=== PATIENT | male | born 1950 | race Caucasian/White ===

== ENCOUNTER → 2018-06-05 | Outpatient (REF) | payer MEDICARE, OTHER ==
[2018-06-06 14:12] LABS: PSA TOTAL 2.4 ng/mL (0.0-4.0)
== END ==
LOC: M LAB REF 12:00
PROVIDERS: ATTEND Internal Medicine
DX: R97.20 Elevated prostate specific antigen [PSA] (principal)

== ENCOUNTER → 2019-04-05 | Outpatient (REF) | payer MEDICARE, OTHER | LOC: M LAB REF 12:11 | PROVIDERS: ATTEND Physician Assistant | DX: J02.9 Acute pharyngitis, unspecified (principal) ==

== ENCOUNTER → 2020-05-14 | Outpatient (CLI) | payer MEDICARE, OTHER ==
--- NOTE | 2020-05-14 09:54 | REP ---
INDICATION: PAIN COMPARISON: None. TECHNIQUE: AP, lateral, bilateral oblique views right foot. FINDINGS: Generalized age-related degenerative changes are appreciated most pronounced at the 1st metatarsophalangeal joint which includes joint space narrowing, subchondral sclerosis, marginal spurring and minimal chondrocalcinosis. No acute fracture or dislocation appreciated. IMPRESSION: Degenerative changes primarily involving the 1st MTP joint.. No acute fracture or dislocation. <Electronically signed by Edgardo Holden > 05/14/20 0933
--- NOTE | 2020-05-14 09:55 | REP ---
INDICATION: PAIN COMPARISON: None. TECHNIQUE: AP, lateral, bilateral oblique views. FINDINGS: Generalized age-related changes are appreciated. No acute fracture or dislocation. Ankle mortise intact. No subcutaneous emphysema or foreign body. IMPRESSION: Normal age-appropriate right ankle radiograph series. <Electronically signed by Edgardo Holden > 05/14/20 0929
== END ==
LOC: M WUC 09:09
PROVIDERS: ATTEND Physician Assistant Medical
DX: M19.071 Primary osteoarthritis, right ankle and foot (principal)

== ENCOUNTER → 2021-07-02 | Outpatient (REF) | payer MEDICARE, OTHER | LOC: M LAB REF 16:29 | PROVIDERS: ATTEND Physician Assistant Medical | DX: R10.84 Generalized abdominal pain (principal) ==

== ENCOUNTER → 2022-04-03 | Outpatient (CLI) | payer MEDICARE, OTHER ==
[~2022-04-03] MED LIST: CLAR10CA3 PO; FAMO1TAB11 PO; FLUTISP NARES; MELO15TA28 PO; PROBCAP14 PO; ROSU5TAB5 PO; VITA-243 PO
== END ==
LOC: M LABSMTC 09:51
PROVIDERS: ATTEND Anesthesiology
DX: Z01.812 Encounter for preprocedural laboratory examination (principal); Z20.822 Contact with and (suspected) exposure to COVID-19

== ENCOUNTER 2022-04-08 08:34 | Day surgery (SDC) | payer MEDICARE, OTHER ==
[~2022-04-08] VITALS: Ht 172.7 cm; Wt 82.5 kg
[~2022-04-08 08:34] MED LIST changes: +LIDOCAINE 2% 100MG/5ML SDV (FOR ANES.) As Ordered ONE; +NS 1,000 ML IV ONE; +propofoL 200 MG/20 ML VIAL As Ordered ONE
[2022-04-08] MEDS ORDERED: THERTAB52 PO (09:18)
[2022-04-08 10:43] VITALS: BP 187/97
== END 2022-04-08 10:42 | disposition home or self-care (01) ==
LOC: M OPP 08:34
PROVIDERS: ATTEND Surgery
DX: Z12.11 Encounter for screening for malignant neoplasm of colon (principal); Z80.0 Family history of malignant neoplasm of digestive organs; K57.30 Diverticulosis of large intestine without perforation or abscess without bleeding; K29.70 Gastritis, unspecified, without bleeding; K13.70 Unspecified lesions of oral mucosa; Z79.02 Long term (current) use of antithrombotics/antiplatelets; Z79.51 Long term (current) use of inhaled steroids; Z79.899 Other long term (current) drug therapy; Z88.0 Allergy status to penicillin; E78.00 Pure hypercholesterolemia, unspecified; Z80.1 Family history of malignant neoplasm of trachea, bronchus and lung; Z80.52 Family history of malignant neoplasm of bladder
CPT/HCPCS: 43239; 88305; G0105

== ENCOUNTER → 2022-05-23 | Outpatient (REF) | payer MEDICARE, OTHER ==
[~2022-05-23] MED LIST changes: -LIDOCAINE 2% 100MG/5ML SDV (FOR ANES.) As Ordered ONE; -NS 1,000 ML IV ONE; +THERTAB52 PO; -propofoL 200 MG/20 ML VIAL As Ordered ONE
[2022-05-23 12:48] LABS: FERRITIN 852.2 NG/ML (10.5-307.3)
== END ==
LOC: M LAB REF 11:56
PROVIDERS: ATTEND Internal Medicine
DX: E83.119 Hemochromatosis, unspecified (principal)

== ENCOUNTER → 2022-05-26 | Outpatient (REF) | payer MEDICARE, OTHER | LOC: M LAB REF 11:10 | PROVIDERS: ATTEND Internal Medicine | DX: E83.119 Hemochromatosis, unspecified (principal) ==

== ENCOUNTER 2022-06-16 10:20 | Outpatient (CLI) | payer MEDICARE, OTHER ==
[~2022-06-16] VITALS: Ht 172.7 cm; Wt 85.5 kg
[~2022-06-16 10:20] MED LIST changes: +FLUT50SP17 NARES; -FLUTISP NARES
[2022-06-16 10:35] VITALS: BP 187/91
[2022-06-16 11:30] LABS: HEMATOCRIT 41.8 % (42.0-52.0); HEMOGLOBIN 13.9 g/dl (13.5-17.5); MEAN CORPUSCULAR HEMOGLOBIN 32.8 pg (27.0-33.0); MEAN CORPUSCULAR HGB CONC 33.3 g/dl (32.0-36.5); MEAN CORPUSCULAR VOLUME 98.6 fl (80.0-96.0); PLATELET COUNT, AUTOMATED 197 10^3/uL (150-450); RED BLOOD COUNT 4.24 10^6/uL (4.30-6.10); WHITE BLOOD COUNT 9.5 10^3/uL (4.0-10.0)
[2022-06-16 11:50] VITALS: BP 162/87
[2022-06-16 12:15] VITALS: BP 186/88
== END 2022-06-16 12:15 | disposition home or self-care (01) ==
LOC: M INFU 10:20
PROVIDERS: ATTEND Internal Medicine
DX: E83.119 Hemochromatosis, unspecified (principal); Z88.0 Allergy status to penicillin

== ENCOUNTER 2022-06-23 11:00 | Outpatient (CLI) | payer MEDICARE, OTHER ==
[~2022-06-23] VITALS: Ht 172.7 cm; Wt 85.5 kg
[2022-06-23 11:00] VITALS: BP 184/91
[2022-06-23 11:24] LABS: HEMATOCRIT 40.2 % (42.0-52.0); HEMOGLOBIN 13.3 g/dl (13.5-17.5); MEAN CORPUSCULAR HEMOGLOBIN 32.8 pg (27.0-33.0); MEAN CORPUSCULAR HGB CONC 33.1 g/dl (32.0-36.5); MEAN CORPUSCULAR VOLUME 99.3 fl (80.0-96.0); PLATELET COUNT, AUTOMATED 244 10^3/uL (150-450); RED BLOOD COUNT 4.05 10^6/uL (4.30-6.10); WHITE BLOOD COUNT 6.8 10^3/uL (4.0-10.0)
[2022-06-23 12:05] VITALS: BP 170/90
== END 2022-06-23 12:05 ==
LOC: M INFU 11:00
PROVIDERS: ATTEND Internal Medicine
DX: E83.119 Hemochromatosis, unspecified (principal)

== ENCOUNTER → 2022-06-23 | Outpatient (REF) | payer MEDICARE, OTHER | LOC: M LAB REF 12:09 | PROVIDERS: ATTEND Internal Medicine | DX: E83.119 Hemochromatosis, unspecified (principal) ==

== ENCOUNTER 2022-06-30 10:49 | Outpatient (CLI) | payer MEDICARE, OTHER ==
[~2022-06-30] VITALS: Ht 172.7 cm; Wt 85.0 kg
[2022-06-30 11:03] VITALS: BP 168/90
[2022-06-30 11:08] LABS: HEMATOCRIT 40.4 % (42.0-52.0); HEMOGLOBIN 13.4 g/dl (13.5-17.5); MEAN CORPUSCULAR HEMOGLOBIN 33.1 pg (27.0-33.0); MEAN CORPUSCULAR HGB CONC 33.2 g/dl (32.0-36.5); MEAN CORPUSCULAR VOLUME 99.8 fl (80.0-96.0); PLATELET COUNT, AUTOMATED 240 10^3/uL (150-450); RED BLOOD COUNT 4.05 10^6/uL (4.30-6.10); WHITE BLOOD COUNT 5.9 10^3/uL (4.0-10.0)
[2022-06-30 11:59] VITALS: BP 171/87
== END 2022-06-30 12:00 | disposition home or self-care (01) ==
LOC: M INFU 10:49
PROVIDERS: ATTEND Internal Medicine
DX: E83.119 Hemochromatosis, unspecified (principal)

== ENCOUNTER → 2022-07-04 | Outpatient (REF) | payer MEDICARE, OTHER | LOC: M LAB REF 12:01 | PROVIDERS: ATTEND Internal Medicine | DX: E83.119 Hemochromatosis, unspecified (principal) ==

== ENCOUNTER → 2022-07-07 | Outpatient (CLI) | payer MEDICARE, OTHER ==
[2022-07-07 11:00] VITALS: BP 168/98
[2022-07-07 11:29] LABS: HEMATOCRIT 41.4 % (42.0-52.0); HEMOGLOBIN 13.7 g/dl (13.5-17.5); MEAN CORPUSCULAR HEMOGLOBIN 33.2 pg (27.0-33.0); MEAN CORPUSCULAR HGB CONC 33.1 g/dl (32.0-36.5); MEAN CORPUSCULAR VOLUME 100.2 fl (80.0-96.0); PLATELET COUNT, AUTOMATED 218 10^3/uL (150-450); RED BLOOD COUNT 4.13 10^6/uL (4.30-6.10); WHITE BLOOD COUNT 5.7 10^3/uL (4.0-10.0)
[2022-07-07 12:00] VITALS: BP 170/90
[2022-07-07 12:33] LABS: HEMATOCRIT 39.2 % (42.0-52.0); HEMOGLOBIN 12.9 g/dl (13.5-17.5); MEAN CORPUSCULAR HEMOGLOBIN 33.1 pg (27.0-33.0); MEAN CORPUSCULAR HGB CONC 32.9 g/dl (32.0-36.5); MEAN CORPUSCULAR VOLUME 100.5 fl (80.0-96.0); PLATELET COUNT, AUTOMATED 215 10^3/uL (150-450); WHITE BLOOD COUNT 5.4 10^3/uL (4.0-10.0)
[2022-07-07 12:52] LABS: PERCENT SATURATION 49.1 % (19.7-50.0)
[2022-07-07 12:55] LABS: FERRITIN 850.5 NG/ML (10.5-307.3)
== END ==
LOC: M INFU 11:00
PROVIDERS: ATTEND Internal Medicine
DX: E83.119 Hemochromatosis, unspecified (principal); Z88.0 Allergy status to penicillin

== ENCOUNTER → 2022-07-14 | Outpatient (REF) | payer MEDICARE, OTHER | LOC: M LAB REF 12:22 | PROVIDERS: ATTEND Internal Medicine | DX: E83.119 Hemochromatosis, unspecified (principal) ==

== ENCOUNTER → 2022-08-10 | Outpatient (REF) | payer MEDICARE, OTHER ==
[2022-08-10 12:44] LABS: PERCENT SATURATION 35.4 % (19.7-50.0)
[2022-08-10 12:47] LABS: FERRITIN 652.7 NG/ML (10.5-307.3)
== END ==
LOC: M LAB REF 12:09
PROVIDERS: ATTEND Internal Medicine
DX: E83.119 Hemochromatosis, unspecified (principal)

== ENCOUNTER 2022-10-06 09:55 | Outpatient (CLI) | payer MEDICARE, OTHER ==
[~2022-10-06] VITALS: Ht 172.7 cm; Wt 85.0 kg
[2022-10-06 10:07] VITALS: BP 160/88; O2SAT 97
[2022-10-06 10:33] LABS: HEMATOCRIT 42.8 % (42.0-52.0); HEMOGLOBIN 14.6 g/dl (13.5-17.5); MEAN CORPUSCULAR HEMOGLOBIN 33.1 pg (27.0-33.0); MEAN CORPUSCULAR HGB CONC 34.1 g/dl (32.0-36.5); MEAN CORPUSCULAR VOLUME 97.1 fl (80.0-96.0); PLATELET COUNT, AUTOMATED 185 10^3/uL (150-450); RED BLOOD COUNT 4.41 10^6/uL (4.30-6.10); WHITE BLOOD COUNT 5.9 10^3/uL (4.0-10.0)
[2022-10-06 11:15] VITALS: BP 170/90; O2SAT 96
== END 2022-10-06 11:15 ==
LOC: M INFU 09:55
PROVIDERS: ATTEND Internal Medicine
DX: E83.119 Hemochromatosis, unspecified (principal); Z88.0 Allergy status to penicillin

== ENCOUNTER 2022-10-13 09:45 | Outpatient (CLI) | payer MEDICARE, OTHER ==
[~2022-10-13] VITALS: Ht 172.7 cm; Wt 85.0 kg
[2022-10-13 09:16] VITALS: BP 154/80; O2SAT 100
[2022-10-13 09:22] LABS: HEMATOCRIT 42.8 % (42.0-52.0); HEMOGLOBIN 14.4 g/dl (13.5-17.5); MEAN CORPUSCULAR HEMOGLOBIN 33.1 pg (27.0-33.0); MEAN CORPUSCULAR HGB CONC 33.6 g/dl (32.0-36.5); MEAN CORPUSCULAR VOLUME 98.4 fl (80.0-96.0); PLATELET COUNT, AUTOMATED 196 10^3/uL (150-450); RED BLOOD COUNT 4.35 10^6/uL (4.30-6.10); WHITE BLOOD COUNT 5.4 10^3/uL (4.0-10.0)
[2022-10-13 10:30] VITALS: BP 152/84; O2SAT 100
== END 2022-10-13 10:25 | disposition home or self-care (01) ==
LOC: M INFU 09:45
PROVIDERS: ATTEND Internal Medicine
DX: E83.119 Hemochromatosis, unspecified (principal); Z88.0 Allergy status to penicillin

== ENCOUNTER 2022-10-20 08:15 | Outpatient (CLI) | payer MEDICARE, OTHER ==
[2022-10-20 08:27] VITALS: BP 150/80; O2SAT 98
[2022-10-20 08:35] LABS: HEMATOCRIT 36.9 % (42.0-52.0); HEMOGLOBIN 12.5 g/dl (13.5-17.5); MEAN CORPUSCULAR HEMOGLOBIN 33.4 pg (27.0-33.0); MEAN CORPUSCULAR HGB CONC 33.9 g/dl (32.0-36.5); MEAN CORPUSCULAR VOLUME 98.7 fl (80.0-96.0); PLATELET COUNT, AUTOMATED 209 10^3/uL (150-450); RED BLOOD COUNT 3.74 10^6/uL (4.30-6.10); WHITE BLOOD COUNT 5.6 10^3/uL (4.0-10.0)
== END 2022-10-20 09:05 | disposition home or self-care (01) ==
LOC: M INFU 08:15
PROVIDERS: ATTEND Internal Medicine
DX: E83.119 Hemochromatosis, unspecified (principal); Z88.0 Allergy status to penicillin

== ENCOUNTER 2022-11-10 10:00 | Outpatient (CLI) | payer MEDICARE, OTHER ==
[2022-11-10 10:00] VITALS: BP 170/85; O2SAT 100
[2022-11-10 10:28] LABS: HEMATOCRIT 41.2 % (42.0-52.0); HEMOGLOBIN 13.6 g/dl (13.5-17.5); MEAN CORPUSCULAR HEMOGLOBIN 33.4 pg (27.0-33.0); MEAN CORPUSCULAR VOLUME 101.2 fl (80.0-96.0); PLATELET COUNT, AUTOMATED 220 10^3/uL (150-450); RED BLOOD COUNT 4.07 10^6/uL (4.30-6.10); WHITE BLOOD COUNT 4.7 10^3/uL (4.0-10.0)
== END 2022-11-10 12:00 ==
LOC: M INFU 10:00
PROVIDERS: ATTEND Internal Medicine
DX: E83.119 Hemochromatosis, unspecified (principal); Z88.0 Allergy status to penicillin; K21.9 Gastro-esophageal reflux disease without esophagitis; E78.5 Hyperlipidemia, unspecified; M19.90 Unspecified osteoarthritis, unspecified site; J30.9 Allergic rhinitis, unspecified; E66.3 Overweight

== ENCOUNTER → 2022-11-25 | Outpatient (REF) | payer MEDICARE, OTHER ==
[2022-11-25 13:20] LABS: FERRITIN 647.3 NG/ML (10.5-307.3)
== END ==
LOC: M LAB REF 12:03
PROVIDERS: ATTEND Internal Medicine
DX: E83.119 Hemochromatosis, unspecified (principal); Z12.12 Encounter for screening for malignant neoplasm of rectum

== ENCOUNTER 2022-12-22 15:10 | Outpatient (CLI) | payer MEDICARE, OTHER ==
[~2022-12-22] VITALS: Ht 172.7 cm; Wt 85.5 kg
[2022-12-22 15:15] VITALS: BP 166/77; O2SAT 96
[2022-12-22 15:41] LABS: HEMATOCRIT 38.8 % (42.0-52.0); HEMOGLOBIN 13.6 g/dl (13.5-17.5); MEAN CORPUSCULAR HEMOGLOBIN 34.6 pg (27.0-33.0); MEAN CORPUSCULAR HGB CONC 35.1 g/dl (32.0-36.5); MEAN CORPUSCULAR VOLUME 98.7 fl (80.0-96.0); PLATELET COUNT, AUTOMATED 220 10^3/uL (150-450); RED BLOOD COUNT 3.93 10^6/uL (4.30-6.10); WHITE BLOOD COUNT 6.2 10^3/uL (4.0-10.0)
[2022-12-22 16:00] VITALS: BP 162/89; O2SAT 98
== END 2022-12-22 16:00 | disposition home or self-care (01) ==
LOC: M INFU 15:10
PROVIDERS: ATTEND Internal Medicine
DX: E83.119 Hemochromatosis, unspecified (principal); Z88.0 Allergy status to penicillin

== ENCOUNTER 2022-12-29 15:10 | Outpatient (CLI) | payer MEDICARE, OTHER ==
[~2022-12-29] VITALS: Ht 203.2 cm; Wt 87.7 kg
[2022-12-29 15:10] VITALS: BP 160/88; O2SAT 98
[2022-12-29 15:54] LABS: HEMATOCRIT 38.9 % (42.0-52.0); MEAN CORPUSCULAR HEMOGLOBIN 33.6 pg (27.0-33.0); MEAN CORPUSCULAR HGB CONC 33.4 g/dl (32.0-36.5); MEAN CORPUSCULAR VOLUME 100.5 fl (80.0-96.0); PLATELET COUNT, AUTOMATED 217 10^3/uL (150-450); RED BLOOD COUNT 3.87 10^6/uL (4.30-6.10); WHITE BLOOD COUNT 8.6 10^3/uL (4.0-10.0)
[2022-12-29 16:45] VITALS: BP 157/98; O2SAT 100
== END 2022-12-29 16:25 | disposition home or self-care (01) ==
LOC: M INFU 15:10
PROVIDERS: ATTEND Internal Medicine
DX: E83.119 Hemochromatosis, unspecified (principal); Z88.0 Allergy status to penicillin

== ENCOUNTER 2023-01-05 14:56 | Outpatient (CLI) | payer MEDICARE, OTHER ==
[~2023-01-05] VITALS: Ht 172.7 cm; Wt 87.7 kg
[2023-01-05 15:00] VITALS: BP 150/90; O2SAT 99
[2023-01-05 15:20] LABS: HEMATOCRIT 38.8 % (42.0-52.0); HEMOGLOBIN 12.7 g/dl (13.5-17.5); MEAN CORPUSCULAR HEMOGLOBIN 33.4 pg (27.0-33.0); MEAN CORPUSCULAR HGB CONC 32.7 g/dl (32.0-36.5); MEAN CORPUSCULAR VOLUME 102.1 fl (80.0-96.0); PLATELET COUNT, AUTOMATED 232 10^3/uL (150-450)
[2023-01-05 15:50] VITALS: BP 150/88; O2SAT 100
== END 2023-01-05 16:00 ==
LOC: M INFU 14:56
PROVIDERS: ATTEND Internal Medicine
DX: E83.119 Hemochromatosis, unspecified (principal); Z88.0 Allergy status to penicillin

== ENCOUNTER 2023-01-31 14:00 | Outpatient (CLI) | payer MEDICARE, OTHER ==
[~2023-01-31] VITALS: Ht 172.7 cm; Wt 87.7 kg
[2023-01-31 14:09] VITALS: BP 165/88; O2SAT 97
[2023-01-31 14:20] LABS: HEMATOCRIT 41.9 % (42.0-52.0); HEMOGLOBIN 14.4 g/dl (13.5-17.5); MEAN CORPUSCULAR HEMOGLOBIN 34.2 pg (27.0-33.0); MEAN CORPUSCULAR HGB CONC 34.4 g/dl (32.0-36.5); MEAN CORPUSCULAR VOLUME 99.5 fl (80.0-96.0); PLATELET COUNT, AUTOMATED 217 10^3/uL (150-450); RED BLOOD COUNT 4.21 10^6/uL (4.30-6.10); WHITE BLOOD COUNT 5.8 10^3/uL (4.0-10.0)
[2023-01-31 14:45] VITALS: BP 150/81; O2SAT 98
== END 2023-01-31 14:45 ==
LOC: M INFU 14:00
PROVIDERS: ATTEND Internal Medicine
DX: E83.119 Hemochromatosis, unspecified (principal); Z88.0 Allergy status to penicillin

== ENCOUNTER 2023-02-09 14:55 | Outpatient (CLI) | payer MEDICARE, OTHER ==
[~2023-02-09] VITALS: Ht 172.7 cm; Wt 86.4 kg
[2023-02-09 14:55] VITALS: BP 173/82; O2SAT 97
[2023-02-09 15:25] LABS: HEMATOCRIT 38.8 % (42.0-52.0); HEMOGLOBIN 13.3 g/dl (13.5-17.5); MEAN CORPUSCULAR HEMOGLOBIN 33.8 pg (27.0-33.0); MEAN CORPUSCULAR HGB CONC 34.3 g/dl (32.0-36.5); MEAN CORPUSCULAR VOLUME 98.7 fl (80.0-96.0); PLATELET COUNT, AUTOMATED 225 10^3/uL (150-450); RED BLOOD COUNT 3.93 10^6/uL (4.30-6.10); WHITE BLOOD COUNT 6.7 10^3/uL (4.0-10.0)
[2023-02-09 15:50] VITALS: BP 140/93; O2SAT 99
== END 2023-02-09 15:45 | disposition home or self-care (01) ==
LOC: M INFU 14:55
PROVIDERS: ATTEND Internal Medicine
DX: E83.119 Hemochromatosis, unspecified (principal); Z88.0 Allergy status to penicillin

== ENCOUNTER 2023-02-16 14:00 | Outpatient (CLI) | payer MEDICARE, OTHER ==
[~2023-02-16 14:00] MED LIST changes: -FLUT50SP17 NARES; +FLUTISP NARES
[2023-02-16 14:10] VITALS: BP 175/91; O2SAT 98
[2023-02-16 14:30] LABS: HEMATOCRIT 39.1 % (42.0-52.0); HEMOGLOBIN 13.2 g/dl (13.5-17.5); MEAN CORPUSCULAR HEMOGLOBIN 33.5 pg (27.0-33.0); MEAN CORPUSCULAR HGB CONC 33.8 g/dl (32.0-36.5); MEAN CORPUSCULAR VOLUME 99.2 fl (80.0-96.0); PLATELET COUNT, AUTOMATED 214 10^3/uL (150-450); RED BLOOD COUNT 3.94 10^6/uL (4.30-6.10); WHITE BLOOD COUNT 7.5 10^3/uL (4.0-10.0)
[2023-02-16 14:45] VITALS: BP 138/86; O2SAT 99
== END 2023-02-16 14:45 | disposition home or self-care (01) ==
LOC: M INFU 14:00
PROVIDERS: ATTEND Internal Medicine
DX: E83.119 Hemochromatosis, unspecified (principal); Z88.0 Allergy status to penicillin

== ENCOUNTER 2023-03-02 15:45 | Outpatient (CLI) | payer MEDICARE, OTHER ==
[~2023-03-02] VITALS: Ht 172.7 cm; Wt 86.3 kg
[2023-03-02 16:08] LABS: HEMATOCRIT 37.3 % (42.0-52.0); HEMOGLOBIN 12.6 g/dl (13.5-17.5); MEAN CORPUSCULAR HEMOGLOBIN 33.2 pg (27.0-33.0); MEAN CORPUSCULAR HGB CONC 33.8 g/dl (32.0-36.5); MEAN CORPUSCULAR VOLUME 98.4 fl (80.0-96.0); PLATELET COUNT, AUTOMATED 298 10^3/uL (150-450); RED BLOOD COUNT 3.79 10^6/uL (4.30-6.10); WHITE BLOOD COUNT 8.2 10^3/uL (4.0-10.0)
[2023-03-02 16:12] VITALS: BP 175/78; O2SAT 98
[2023-03-02 16:35] VITALS: BP 151/84; O2SAT 99
== END 2023-03-02 16:35 | disposition home or self-care (01) ==
LOC: M INFU 15:45
PROVIDERS: ATTEND Internal Medicine
DX: E83.119 Hemochromatosis, unspecified (principal); Z88.0 Allergy status to penicillin

== ENCOUNTER → 2023-04-06 | Outpatient (REF) | payer MEDICARE, OTHER | LOC: M LAB REF 12:13 | PROVIDERS: ATTEND Internal Medicine | DX: E83.119 Hemochromatosis, unspecified (principal) ==

== ENCOUNTER 2023-04-20 15:43 | Outpatient (CLI) | payer MEDICARE, OTHER ==
[~2023-04-20] VITALS: Ht 172.7 cm; Wt 87.0 kg
[2023-04-20 16:00] VITALS: BP 188/93; O2SAT 98
[2023-04-20 16:20] VITALS: BP 142/95; O2SAT 99
== END 2023-04-20 16:30 ==
LOC: M INFU 15:43
PROVIDERS: ATTEND Internal Medicine
DX: E83.119 Hemochromatosis, unspecified (principal); Z88.0 Allergy status to penicillin

== ENCOUNTER → 2023-05-03 | Outpatient (REF) | payer MEDICARE, OTHER | LOC: M LAB REF 12:16 | PROVIDERS: ATTEND Internal Medicine | DX: E83.119 Hemochromatosis, unspecified (principal) ==

== ENCOUNTER 2023-05-18 15:30 | Outpatient (CLI) | payer MEDICARE, OTHER ==
[2023-05-18 15:30] VITALS: BP_SYST 143; BP_SYST 152; BP_DIAS 81; BP_DIAS 82; O2SAT 99
[2023-05-18 16:00] LABS: HEMOGLOBIN 14.1 g/dl (13.5-17.5); MEAN CORPUSCULAR HEMOGLOBIN 33.3 pg (27.0-33.0); MEAN CORPUSCULAR HGB CONC 34.4 g/dl (32.0-36.5); MEAN CORPUSCULAR VOLUME 96.7 fl (80.0-96.0); PLATELET COUNT, AUTOMATED 191 10^3/uL (150-450); RED BLOOD COUNT 4.24 10^6/uL (4.30-6.10); WHITE BLOOD COUNT 6.5 10^3/uL (4.0-10.0)
[2023-05-18 16:30] VITALS: BP 140/68; O2SAT 98
== END 2023-05-18 16:30 | disposition home or self-care (01) ==
LOC: M INFU 15:30
PROVIDERS: ATTEND Internal Medicine
DX: E83.119 Hemochromatosis, unspecified (principal); Z88.0 Allergy status to penicillin

== ENCOUNTER 2023-06-15 15:50 | Outpatient (CLI) | payer MEDICARE, OTHER ==
[~2023-06-15] VITALS: Ht 172.7 cm; Wt 85.9 kg
[2023-06-15 15:50] VITALS: BP 142/84; O2SAT 97
[2023-06-15 16:12] LABS: HEMATOCRIT 40.2 % (42.0-52.0); HEMOGLOBIN 13.6 g/dl (13.5-17.5); MEAN CORPUSCULAR HEMOGLOBIN 32.2 pg (27.0-33.0); MEAN CORPUSCULAR HGB CONC 33.8 g/dl (32.0-36.5); PLATELET COUNT, AUTOMATED 207 10^3/uL (150-450); RED BLOOD COUNT 4.23 10^6/uL (4.30-6.10)
[2023-06-15 16:45] VITALS: BP 178/88; O2SAT 96
== END 2023-06-15 16:45 ==
LOC: M INFU 15:50
PROVIDERS: ATTEND Internal Medicine
DX: E83.119 Hemochromatosis, unspecified (principal); Z88.0 Allergy status to penicillin

== ENCOUNTER → 2023-07-20 | Outpatient (CLI) | payer MEDICARE, OTHER ==
[~2023-07-20] MED LIST changes: +ROSU5TAB40 PO; -ROSU5TAB5 PO
[2023-07-20 15:55] VITALS: BP 168/90; O2SAT 97
[2023-07-20 16:09] LABS: HEMATOCRIT 39.9 % (42.0-52.0); HEMOGLOBIN 13.6 g/dl (13.5-17.5); MEAN CORPUSCULAR HEMOGLOBIN 32.9 pg (27.0-33.0); MEAN CORPUSCULAR HGB CONC 34.1 g/dl (32.0-36.5); MEAN CORPUSCULAR VOLUME 96.6 fl (80.0-96.0); PLATELET COUNT, AUTOMATED 195 10^3/uL (150-450); RED BLOOD COUNT 4.13 10^6/uL (4.30-6.10); WHITE BLOOD COUNT 9.3 10^3/uL (4.0-10.0)
== END ==
LOC: M INFU 15:36
PROVIDERS: ATTEND Internal Medicine
DX: E83.119 Hemochromatosis, unspecified (principal); Z88.0 Allergy status to penicillin

== ENCOUNTER 2023-08-17 15:45 | Outpatient (CLI) | payer MEDICARE, OTHER ==
[2023-08-17 16:00] VITALS: BP 178/88; O2SAT 98
[2023-08-17 16:03] LABS: HEMATOCRIT 43.2 % (42.0-52.0); HEMOGLOBIN 15.1 g/dl (13.5-17.5); MEAN CORPUSCULAR HEMOGLOBIN 33.7 pg (27.0-33.0); MEAN CORPUSCULAR VOLUME 96.4 fl (80.0-96.0); PLATELET COUNT, AUTOMATED 184 10^3/uL (150-450); RED BLOOD COUNT 4.48 10^6/uL (4.30-6.10); WHITE BLOOD COUNT 7.8 10^3/uL (4.0-10.0)
== END 2023-08-17 16:32 ==
LOC: M INFU 15:45
PROVIDERS: ATTEND Internal Medicine
DX: E83.119 Hemochromatosis, unspecified (principal); Z88.0 Allergy status to penicillin

== ENCOUNTER 2023-09-21 15:38 | Outpatient (CLI) | payer MEDICARE, OTHER ==
[~2023-09-21] VITALS: Ht 172.7 cm; Wt 87.0 kg
[2023-09-21 15:30] VITALS: BP 150/90; O2SAT 97
[2023-09-21 16:00] VITALS: BP 148/80; O2SAT 97
== END 2023-09-21 16:00 ==
LOC: M INFU 15:38
PROVIDERS: ATTEND Internal Medicine
DX: E83.119 Hemochromatosis, unspecified (principal); Z88.0 Allergy status to penicillin; R73.09 Other abnormal glucose; E78.00 Pure hypercholesterolemia, unspecified; R53.83 Other fatigue

== ENCOUNTER → 2023-09-21 | Outpatient (CLI) | payer MEDICARE, OTHER ==
[2023-09-21 14:48] LABS: BASO % 0.5 % (0.0-1.0); EOS # 0.2 10^3/uL (0.0-0.5); EOS % 2.6 % (0.0-3.0); HEMATOCRIT 42.2 % (42.0-52.0); HEMOGLOBIN 14.6 g/dl (13.5-17.5); LYMPH # 1.5 10^3/uL (1.5-5.0); LYMPH % 25.3 % (24.0-44.0); MEAN CORPUSCULAR HEMOGLOBIN 33.2 pg (27.0-33.0); MEAN CORPUSCULAR HGB CONC 34.6 g/dl (32.0-36.5); MEAN CORPUSCULAR VOLUME 95.9 fl (80.0-96.0); MONO # 0.7 10^3/uL (0.0-0.8); MONO % 10.7 % (2.0-8.0); NEUTROPHILS # 3.7 10^3/uL (1.5-8.5); NEUTROPHILS % 60.6 % (36.0-66.0); PLATELET COUNT, AUTOMATED 218 10^3/uL (150-450); WHITE BLOOD COUNT 6.1 10^3/uL (4.0-10.0)
[2023-09-21 15:19] LABS: ALBUMIN 4.1 G/DL (3.2-5.2); ALKALINE PHOSPHATASE 62 U/L (46-116); ALT/SGPT 23 U/L (7.0-40); AST/SGOT 20 U/L (<34); BILIRUBIN,TOTAL 0.4 MG/DL (0.3-1.2); BLOOD UREA NITROGEN 19 MG/DL (9-23); CALCIUM LEVEL 9.1 MG/DL (8.3-10.6); CARBON DIOXIDE LEVEL 27 MMOL/L (20-31); CHLORIDE LEVEL 107 MMOL/L (98-107); CHOLESTEROL LEVEL 158 MG/DL (<200); CHOLESTEROL RISK RATIO 3.41 (<5); CREATININE FOR GFR 1.05 MG/DL (0.70-1.30); GLOMERULAR FILTRATION RATE > 60.0 (>42); GLUCOSE, FASTING 132 MG/DL (74-106); HDL CHOLESTEROL 46.3 MG/DL (>40); IRON (FE) 85 UG/DL (65-175); LDL CHOLESTEROL 58.9 MG/DL (<100); NON-HDL-C 111.7 MG/DL; PERCENT SATURATION 27.9 % (19.7-50.0); POTASSIUM SERUM 3.9 MMOL/L (3.5-5.1); SODIUM LEVEL 142 MMOL/L (136-145); TOTAL IRON BINDING CAPACITY 305 UG/DL (250-425); TRIGLYCERIDES LEVEL 264 MG/DL (<150)
[2023-09-21 15:20] LABS: FERRITIN 74.9 NG/ML (10.5-307.3); TOTAL 25(OH) VITAMIN D 43.6 NG/ML (20.0-100.0)
== END ==
LOC: M LAB 14:03
PROVIDERS: ATTEND Internal Medicine
DX: E83.119 Hemochromatosis, unspecified (principal); R73.09 Other abnormal glucose; E78.00 Pure hypercholesterolemia, unspecified; R53.83 Other fatigue

== ENCOUNTER → 2023-12-14 | Outpatient (REF) | payer MEDICARE, OTHER ==
[2023-12-14 17:38] LABS: IRON (FE) 91 UG/DL (65-175); PERCENT SATURATION 28.8 % (19.7-50.0); TOTAL IRON BINDING CAPACITY 316 UG/DL (250-425)
[2023-12-14 17:41] LABS: FERRITIN 96.6 NG/ML (10.5-307.3)
== END ==
LOC: M LAB REF 16:08
PROVIDERS: ATTEND Internal Medicine
DX: E83.119 Hemochromatosis, unspecified (principal)

== ENCOUNTER → 2024-04-12 | Outpatient (REF) | payer MEDICARE, OTHER ==
[~2024-04-12] MED LIST changes: -ROSU5TAB40 PO; +ROSU5TAB49 PO
[2024-04-12 13:46] LABS: PERCENT SATURATION 48.7 % (19.7-50.0)
[2024-04-12 13:48] LABS: FERRITIN 66.5 NG/ML (10.5-307.3)
== END ==
LOC: M LAB REF 12:46
PROVIDERS: ATTEND Internal Medicine
DX: E83.119 Hemochromatosis, unspecified (principal)

== ENCOUNTER 2024-04-29 12:17 | Outpatient (CLI) | payer MEDICARE, OTHER ==
[2024-04-29 12:45] VITALS: BP 152/88; O2SAT 98
[2024-04-29 13:10] VITALS: BP 162/86; O2SAT 97
== END 2024-04-29 13:10 | disposition home or self-care (01) ==
LOC: M INFU 12:17
PROVIDERS: ATTEND Internal Medicine
DX: E83.119 Hemochromatosis, unspecified (principal); Z88.0 Allergy status to penicillin

== ENCOUNTER → 2024-10-10 | Outpatient (REF) | payer MEDICARE, OTHER ==
[2024-10-10 14:10] LABS: IRON (FE) 244.0 UG/DL (65-175); PERCENT SATURATION 80.0 % (19.7-50.0)
== END ==
LOC: M LAB REF 12:41
PROVIDERS: ATTEND Internal Medicine
DX: E83.119 Hemochromatosis, unspecified (principal)

== ENCOUNTER → 2024-11-14 | Outpatient (CLI) | payer MEDICARE, OTHER | LOC: M RAD 07:47 | PROVIDERS: ATTEND Internal Medicine | DX: E83.119 Hemochromatosis, unspecified (principal); N28.1 Cyst of kidney, acquired; K76.0 Fatty (change of) liver, not elsewhere classified ==

== ENCOUNTER → 2024-12-11 | Outpatient (REF) | payer MEDICARE, OTHER ==
[2024-12-11 12:46] LABS: IRON (FE) 111 UG/DL (65-175); PERCENT SATURATION 38.5 % (19.7-50.0)
== END ==
LOC: M LAB REF 11:45
PROVIDERS: ATTEND Internal Medicine
DX: E83.119 Hemochromatosis, unspecified (principal)